=== PATIENT | male | born 1955 | race Caucasian/White ===

== ENCOUNTER → 2017-10-21 08:59 | Outpatient (CLI) | payer MEDICAID ==
[2016-04-18 14:23] VITALS: BMI 26.3
[~2017-10-21 08:59] MED LIST: ADVAIR 250/501 DISK INH; FLOMAX0.4 MG PO; HYDROCODON-ACE1 EAC7 PO; MOBIC7.5 MG PO; NORVASC10 MG PO; NORVASC5 MG PO; PROAIR HFA8.5 GM INH; PROTONIX40 MG PO; SPIRIVA18 MCG INH; TOPROL XL100 MG PO; ULTRAM50 MG PO; ZESTRIL40 MG PO
== END | disposition home or self-care (01) ==
LOC: D.US 08:59
DX: I71.4 Abdominal aortic aneurysm, without rupture (principal)

== ENCOUNTER 2019-01-05 09:11 | Day surgery (SDC) | payer MEDICAID ==
[~2019-01-05] VITALS: Ht 172.7 cm; Wt 77.3 kg
--- NOTE | ~2019-01-05 | OP ---
PATIENT NAME: MANGO DICKSON MEDICAL RECORD: [id number] :55 LOCATION:[facility] ADMISSION DATE: SURGEON: HEAVEN HERRERA DO DATE OF OPERATION: 01/05/2019 PROCEDURE: EGD with biopsies. 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 His last EGD was April of 2016. SCOPE: Olympus video gastroscope. MEDICATIONS: Propofol 300 mg IV per anesthesia. ESTIMATED BLOOD LOSS: Minimal. COMPLICATIONS: None. FINDINGS: Informed consent was given. The patient was made comfortable with the above medication. After reaching an adequate level of sedation by slow IV push, the patient was placed on his left side. The endoscope was advanced under direct visualization through the mouth to the second portion of the duodenum. The upper, middle, and lower thirds of the esophagus appeared normal. At the GE junction, there was evidence of LA class A reflux induced esophagitis and short segment Coreas esophagus. There were no obvious nodules or abnormal lesions within the Coreas's mucosa itself. A few cold forceps biopsies were taken from this tissue to rule out the presence of dysplasia. The endoscope was advanced beyond the GE junction into the stomach and retroflexed to view the cardia, where a small sliding hiatal hernia was present. There were a few benign appearing fundic gland type polyps located in the fundus and body of the stomach. There were patchy areas of erythema and granularity within the stomach consistent with possible gastritis. Random cold forceps biopsies were taken to submit for histopathology and to rule out the presence of H. pylori. The endoscope was advanced beyond the pylorus into the duodenum. The duodenal bulb revealed some erythema and granularity consistent with duodenitis. Once the endoscope reached the second portion of the duodenum, the mucosa normalized. The endoscope was then withdrawn from the patient. The patient tolerated the procedure well and there were no complications. IMPRESSION: 1. LA class A reflux-induced esophagitis. 2. Coreas esophagus. Biopsies pending. 3. Small sliding hiatal hernia. 4. Gastritis and duodenitis. PLAN AND RECOMMENDATIONS: 1. Discharge home when recovery parameters are met. 2. Follow up biopsy specimen results. 3. GERD diet and reflux precautions. 4. Continue current medications, including pantoprazole 40 mg daily. 5. Repeat EGD in 2 years for Coreas's surveillance. TRANSINT:[id number] Voice Confirmation ID: [id number] DOCUMENT ID: [id number] OPERATIVE REPORT [id number] MANGO DICKSON KJ JAVIER,HEAVEN Dash DO CC: [id number] DICTATION DATE: 01/05/19 1225 POTTER OR CERAMIC ARTIST: 01/05/19 1305 REG [facility] [address] [id number]
[2019-01-05 10:02] LABS: HEMATOCRIT 43.6 % (42.0-54.0); HEMOGLOBIN 14.7 g/dL (13.5-17.5); MCH 30.1 pg (26.0-34.0); MCHC 33.7 g/dL (31.0-37.0); MCV 89.2 fL (80.0-100.0); MEAN PLATELET VOLUME 9.1 fL (7.4-10.4); RBC 4.89 10x6/uL (4.20-6.10); RDW 13.9 % (11.5-14.5); WBC 7.3 10x3/uL (4.8-10.8)
[2019-01-05 10:09] LABS: INR 1.06 (0.85-1.17); PROTIME 13.3 SECONDS (11.6-15.0)
[2019-01-05 10:13] LABS: APTT 24.1 SECONDS (22.8-39.4)
[2019-01-05 11:15] VITALS: BP 138/91; Ht 172.7 cm; Wt 77.3 kg
--- NOTE | 2019-01-05 13:09 | NUR ---
DC INSTRUCTIONS GIVEN TO PT. STATES UNDERSTANDING. DC'D IV CATH FULLY INTACT
== END 2019-01-05 13:15 | disposition home or self-care (01) ==
LOC: D.OPS 09:11
PROVIDERS: Anesthesiology; ATTEND Internal Medicine Gastroenterology
DX: K21.0 Gastro-esophageal reflux disease with esophagitis (principal); K44.9 Diaphragmatic hernia without obstruction or gangrene; K22.70 Barrett's esophagus without dysplasia; K29.50 Unspecified chronic gastritis without bleeding; K29.80 Duodenitis without bleeding; Z01.812 Encounter for preprocedural laboratory examination

== ENCOUNTER → 2020-01-05 09:11 | Outpatient (CLI) | payer OTHER ==
[2019-01-05 11:15] VITALS: BMI 25.9
== END | disposition home or self-care (01) ==
LOC: D.CT 12-02 09:30
PROVIDERS: ATTEND Internal Medicine Cardiovascular Disease
DX: I71.4 Abdominal aortic aneurysm, without rupture (principal)

== ENCOUNTER → 2020-12-23 09:58 | Outpatient (CLI) | payer MEDICARE, OTHER ==
[2019-01-05 11:15] VITALS: BMI 25.9
[2020-12-23 11:15] LABS: CREATININE - SERUM 1.3 mg/dL (0.6-1.3)
== END | disposition home or self-care (01) ==
LOC: D.CT 09:58
PROVIDERS: ATTEND Thoracic Surgery (Cardiothoracic Vascular Surgery)
DX: I71.4 Abdominal aortic aneurysm, without rupture (principal)

== ENCOUNTER → 2021-01-12 13:05 | Outpatient (CLI) | payer MEDICARE, OTHER ==
[2019-01-05 11:15] VITALS: BMI 25.9
== END | disposition home or self-care (01) ==
LOC: D.US 10:20
PROVIDERS: ATTEND Thoracic Surgery (Cardiothoracic Vascular Surgery)
DX: I71.4 Abdominal aortic aneurysm, without rupture (principal)

== ENCOUNTER 2021-01-24 05:17 | Day surgery (SDC) | payer MEDICARE, OTHER ==
[~2021-01-24] VITALS: Ht 172.7 cm; Wt 85.5 kg
--- NOTE | ~2021-01-24 | HEMODYNAMI ---
PATIENT:MANGO DICKSON KJ MEDICAL RECORD: [id number] : 55 [id number] ADMISSION DATE: 01/24/21 Generatedon:19:00 Patient name: MANGO DICKSON Patient #: [id number] SSN: : 1955 Date of study: 01/24/2021 Page: Of Hemodynamic Procedure Report Patient Data Patient Demographics Procedure consent was obtained First Name: MANGO Gender: Male Last Name: YESSI : 1955 [facility] Initial: KJ Age: 65 year(s) Patient #: [id number] Race: Additional ID: [id number] Contact details Address: [address] [place] [address] State: [place] City: [facility] Zip code: [address] Past Medical History Allergies: No known allergies Admission Admission Data Admission Date: 01/24/2021 Admission Time: 5:17 Height (in.): 68 BSA: 1.99 (m2) Height (cm.): 172.72 BMI: 28.59 (kg/m2) Weight (lbs.): 188 Weight (kg.): 85.28 Procedure Procedure Types Cath Procedure Peripheral Cath Diagnostic Procedure Abd/Extremity Aortagram Procedure Description Procedure Date Procedure Date: 01/24/2021 Procedure Start Time: 8:37 Procedure Staff Name Function Fly Ozuna MD Performing Physician Justyna Henry RT Tar Worker Vanesa Holt RN Nurse Mary Hooker RN Nurse Epi George RT Scrub Procedure Data Cath Procedure Fluoroscopy Diagnostic fluoroscopy Total fluoroscopy Time: 2.8 time: 2.8 min min Diagnostic fluoroscopy Total fluoroscopy dose: 725 dose: 725 mGy mGy Contrast Material Contrast Material Type Amount (ml) Isovue 300 70 Diagnostic catheters Device Type Used For End Catheter Placement [facility] Pigtail VESSEL SIZING 5Fr 65CM catheter ([id number]) Procedure Medications Medication Administration Route Dosage Lidocaine 1% added to field 20 Heparin Flush Bag added to field 3 bags (1000units/500ml NS) Versed I.V. 1 mg Fentanyl I.V. 50 mcg Hemodynamics Rest BSA: 1.99 (m2) O2 Consumption: Estimated: 232.1 (ml/min) O2 Consumption indexed: Estimated:116.63 (ml/min/m) Heart Rate: 70 (bpm) Snapshots Pre Cath Intra NCS Post Cath Vital Signs Time Heart Resp SPO2 etCO2 NIBP (mmHg) Rhythm Pain Sedation Rate (ipm) (%) (mmHg) Status Level (bpm) 8:36:16 66 18 100 26.3 132/88(109) NSR 0 (11) 10(A) , No pain 8:40:26 67 12 100 42.1 128/80(103) NSR 0 (11) 10(A) , No pain 8:44:36 69 18 99 25.5 119/80(97) NSR 0 (11) 10(A) , No pain 8:48:46 67 14 99 33.8 112/66(88) NSR 0 (11) 10(A) , No pain 8:52:49 65 15 99 41.3 120/79(97) NSR 0 (11) 10(A) , No pain 8:56:55 66 14 99 45.8 129/84(92) NSR 0 (11) 10(A) , No pain Medications Time Medication Route Dose Verified Delivered Reason Notes Effect iveness by by 8:35:33 Lidocaine 1% added 20ml Fly Bill used for to vial Laith Ozuna procedure field MD BRAMBILA 8:35:48 Heparin Flush added 3 Fly Bill used for Bag to bags Laith Ozuna procedure (1000units/500ml field MD BRAMBILA NS) 8:40:07 Versed I.V. 1 mg Fly Hernandez for Laith rae MD RN 8:40:29 Fentanyl I.V. 50 Fly Hernandez for mcg Laith rae MD legislative advocate Log Time Note 8:13:22 Patient Height : 68 inches 8:13:26 Patient Weight : 188 lbs 8:13:55 Use device set IR Diagnostic 8:14:37 TUBING Contrast Injection High Pressure ([id number]) opened to sterile field. 8:14:38 BENTSON 145cm wire ([id number]) opened to sterile field. 8:14:39 Micropuncture VSI 4FR kit opened to sterile field. 8:14:40 Tegaderm 4 x 4 (1626W) opened to sterile field. 8:14:41 Sterile Angiographic Pack opened to sterile field. 8:14:42 Bag Decanter (2001S) opened to sterile field. 8:14:45 ACIST Manifold (59391) opened to sterile field. 8:14:46 ACIST Hand Control (50986) opened to sterile field. 8:14:47 ACIST Syringe (43765) opened to sterile field. 8:14:52 8:15:34 Time tracking: Regular hours (M-F 7:00 - 5:00) 8:15:50 Plan of Care:Hemodynamics will remain stable., Cardiac rhythm will remain stable., Comfort level will be maintained., Respiratory function will remain adequate., Patient/ family verbilizes understanding of procedure., Procedure tolerated without complication., Recovers from procedure without complications.. 8:15:57 Patient received from Outpatients to IR Alert and oriented. Tansferred to table in Supine position. 8:16:00 Signed procedure consent form obtained from patient. 8:16:06 H&P Date Dictated: 01/24/2021 Within 30 days and on chart., H&P Addendum completed by physician on day of procedure. (MUST COMPLETE FOR ALL OUTPATIENTS). 8:16:08 Pre-procedure instructions explained to patient. 8:16:09 Pre-procedure instructions explained to patient. 8:16:10 Pre-op teaching completed and patient verbalized understanding. 8:16:17 Family in patients room. 8:16:19 Patient NPO since Midnight. 8:16:32 Patient allergic to No known allergies 8:16:37 Is the patient allergic to Iodine/contrast media? No. 8:16:42 Is patient on blood thinner?No 8:16:45 Patient diabetic? No. 8:16:47 8:16:48 ----Pre-sedation anethsthesia assessment.---- 8:16:51 Previous problem with sedation/anesthesia? No ? 8:16:54 Snore? Yes 8:16:56 Sleep apnea? No 8:16:58 Deviated septum? No 8:17:00 Opens mouth fully? Yes 8:17:02 Sticks out tongue? Yes 8:17:17 Airway obstruction? Yes copd 8:17:23 Dentures? Yes out 8:17:26 8:17:40 Right groin area was prepped with chlora-prep and draped in sterile fashion 8:17:43 Alarms reviewed by Vinay Trujillo 8:17:51 8:18:24 A Merit F Pigtail VESSEL SIZING 5Fr 65CM catheter ([id number]) was advanced over the wire and used for . 8:18:46 AMPLATZ Super stiff Straight 260cm wire ([id number]) opened to sterile field. 8:18:52 8:18:58 Pre procedure: right dorsailis pedis pulse Doppler 8:19:02 Pre procedure: right posterior tibial pulse Doppler 8:19:06 8:35:11 Vital chart was started 8:35:17 ECG and BP/O2 sat monitors applied to patient. 8:35:18 Baseline sample Acquired. 8:35:21 Full Disclosure recording started 8:35:24 8:35:33 Lidocaine 1% 20ml vial added to field was administered by Fly Ozuna MD; used for procedure; Verbal order read back and verified. 8:35:48 Heparin Flush Bag (1000units/500ml NS) 3 bags added to field was administered by Fly Ozuna MD; used for procedure; Verbal order read back and verified. 8:36:02 8:36:07 Physician arrived 8:36:08 --------ALL STOP TIME OUT------ 8:36:09 Final Timeout: patient, procedure, and site verified with staff and physician. All members of the team are in agreement. 8:36:29 Fire Safety Assessment: A--An alcohol-based skin anteseptic being used preoperatively., C--Open oxygen or nitrous oxide is being used. 8:36:38 3a) 45-59 Moderately reduced kidney function. 8:37:07 Procedure started. 8:37:11 Local anesthetic to right femoral artery with Lidocaine 1% by Fly Ozuna MD.INITIAL ACCESS ONLY 8:37:27 Arterial access obtained using ultrasound guidance. 8:40:07 Versed 1 mg I.V. was administered by Mary Hooker RN; for sedation; Verbal order read back and verified. 8:40:29 Fentanyl 50 mcg I.V. was administered by Mary Hooker RN; for sedation; Verbal order read back and verified. 8:55:55 SHEATH 5FR [place] (NPQ915) opened to sterile field. 8:56:09 EXOSEAL 5Fr (EX500) opened to sterile field. 8:56:22 Procedure ended.(Physican Out) 8:57:05 Fluoroscopy time 02.80 minutes. 8:57:09 Fluoroscopy dose: 725 mGy 8:57:09 Flurop Dose total: 725 8:57:16 Contrast amount:Isovue 300 70ml. 8:57:19 Procedure and supply charges have been captured, reviewed, submitted and are correct. 9:00:14 Report given to Outpatients. 9:00:47 Vital chart was stopped Device Usage Item Name Manufacture Quantity Catalog Hospital Part Current Minima l Lot# / Number Charge Number Stock Stock Serial# Code TUBING Merit 1 [id number] [id number] 051366 5 Contrast Medical Injection High Pressure ([id number]) BENTSON 145cm Cook Medical 1 [id number] 228286 645067 5 wire (B87245) Micropuncture VSI VASCULAR 1 7266V 384094 856281 5 VSI 4FR kit SOLUTIONS Tegaderm 4 x 3M 1 1626W 170816 527421 076067 5 4 (1626W) Sterile Cardinal 1 [id number] 978180 290304 5 Angiographic Health Pack Bag Decanter Microtek 1 2001S 599970 05099 716462 5 () Medical Inc. ACIST Acist 1 60630 708190 212646 663515 5 Manifold Medical (16822) Systems Inc ACIST Hand Acist 1 96839 090074 002903 067270 5 Control Medical (53753) Systems Inc ACIST Syringe Acist 1 17875 100339 627962 748396 20 (31816) Medical Systems Inc Merit UHF Merit 1 [id number] 882936 558005 5 Pigtail Medical VESSEL SIZING 5Fr 65CM catheter ([id number]) AMPLATZ Super Tibbie 1 [id number] 305716 09398 227060 5 stiff Scientific Straight 260cm wire ([id number]) SHEATH 5FR Terumo 1 RFA309 620461 009123 060796 5 [place] (VTW560) EXOSEAL 5Fr Cardinal 1 EX500 732854 357694 331764 10 (EX500) Health Signature Audit [place] Stage Time Signature Unsigned Intra-Procedure 01/24/2021 Justyna Henry 9:00:44 AM RT(R) [facility] [address] [place] [address]
[2021-01-24 05:53] LABS: ANION GAP 11.8 mmol/L (8-16); CALCIUM 8.9 mg/dL (8.5-10.1); CARBON DIOXIDE 28.9 mmol/L (21.0-32.0); CREATININE - SERUM 1.5 mg/dL (0.6-1.3); POTASSIUM - SERUM 3.7 mmol/L (3.5-5.1)
[2021-01-24 05:54] LABS: APTT 27.5 SECONDS (22.8-39.4); INR 1.18 (0.85-1.17); PROTIME 13.9 SECONDS (11.6-15.0)
[2021-01-24 05:57] LABS: BASOPHILS 0.2 % (0-2); EOSINOPHILS 3.4 % (0-7); HEMATOCRIT 35.8 % (42.0-54.0); HEMOGLOBIN 11.7 g/dL (13.5-17.5); IMMATURE GRANULOCYTES 0.2 % (0-5); LYMPHOCYTE ABS# 1.27 10x3/uL (1.32-3.57); LYMPHOCYTES 25.1 % (15-50); MCH 28.3 pg (26.0-34.0); MCHC 32.7 g/dL (31.0-37.0); MCV 86.7 fL (80.0-100.0); MEAN PLATELET VOLUME 9.7 fL (7.4-10.4); MONOCYTES 9.3 % (2-11); NEUTROPHIL ABS# 3.12 10x3/uL (1.78-5.38); NEUTROPHILS 61.8 % (40-80); RBC 4.13 10x6/uL (4.20-6.10); RDW 13.5 % (11.5-14.5); WBC 5.1 10x3/uL (4.8-10.8)
[2021-01-24 06:01] LABS: PLATELET COUNT 196 10x3/uL (130-400)
[2021-01-24] MEDS ORDERED: VIAGRA50 MG (06:29)
[2021-01-24] MEDS ORDERED: FLOMAX0.4 MG PO (06:30)
[2021-01-24] MEDS ORDERED: STATIN (06:30)
[2021-01-24] MEDS ORDERED: PROSCAR5 MG PO (06:35)
[2021-01-24] MEDS ORDERED: PROPECIA1 MG PO (06:35)
[2021-01-24] MEDS ORDERED: HYDROXYZINE HCL10 MG (06:36)
[2021-01-24] MEDS ORDERED: VALIUM 2 MG TAB2 MG PO (06:37)
[2021-01-24 06:51] VITALS: BP 140/93; Ht 172.7 cm; Wt 85.5 kg
--- NOTE | 2021-01-24 14:36 | NUR ---
1215 PT STATES NEEDS BREATHING TREATMENT. VERENA Pierre
--- NOTE | 2021-01-24 14:39 | NUR ---
1315 IV DC'ED WITH CATH INTACT. PRESSURE TO SITE. BLEEDING FROM SITE AFTER PRESSURE RELEASED. SITE ELEVATED WITH PRESSURE TO SITE. DRESSING. VERENA Pierre [id number] PROVIDED WITH D/C INFORMATION INCLUDING: MED REC, CORDIS EXOSEAL CARD & INFORMATION, ARTERIOGRAM DISCHARGE INSTRUCTIONS & [facility] D/C INSTRUCTIONS. TO PRIVATE CAR PER WHEELCHAIR BY THIS NURSE. HOME WITH SISTER. Rip CEDENO R.N.
== END 2021-01-24 13:45 | disposition home or self-care (01) ==
LOC: D.RAD 05:17
PROVIDERS: Radiology Diagnostic Radiology; ATTEND Thoracic Surgery (Cardiothoracic Vascular Surgery)
DX: I71.4 Abdominal aortic aneurysm, without rupture (principal); J44.9 Chronic obstructive pulmonary disease, unspecified; F17.200 Nicotine dependence, unspecified, uncomplicated

== ENCOUNTER → 2021-02-08 10:32 | Outpatient (CLI) | payer MEDICARE, OTHER ==
[2021-01-24 06:51] VITALS: BMI 28.6
[~2021-02-08 10:32] MED LIST changes: +HYDROXYZINE HCL10 MG; +PROPECIA1 MG PO; +PROSCAR5 MG PO; +STATIN; +VALIUM 2 MG TAB2 MG PO; +VIAGRA50 MG
== END | disposition home or self-care (01) ==
LOC: D.US 10:32
PROVIDERS: ATTEND Thoracic Surgery (Cardiothoracic Vascular Surgery)
DX: I71.4 Abdominal aortic aneurysm, without rupture (principal)